=== PATIENT | male | born 1975 | race African-American/Black ===

== ENCOUNTER 2018-01-26 05:20 | Emergency (ER) | payer BC ==
[2018-01-26] MEDS ORDERED: Sodium Chloride 0.9% 1,000 ML IV ONE (06:00)
[2018-01-26] MEDS ORDERED: Diltiazem 25 MG/5 ML SDV IVPUSH ONE (06:57)
--- NOTE | 2018-01-26 06:57 | EDM.PDOC ---
<MccallOrion - Last Filed: 01/26/18 07:30> ED HPI GENERAL MEDICAL PROBLEM - General Chief Complaint: Respiratory Problem Stated Complaint: HARD TIME BREATHING Time Seen by Provider: 01/26/18 06:55 Source of Information: Reports: Patient History Limitations: Reports: No Limitations - History of Present Illness INITIAL COMMENTS - FREE TEXT/NARRATIVE: HISTORY AND PHYSICAL: History of present illness: 41-year-old male presenting emergency department with chief complaint of shortness of breath 30 minutes. Patient states that he went to work at around 0445 this morning and was there for about 15 minutes when he began to have sudden onset of shortness of breath. He also noticed that his heart was beating fast. He came to the emergency department immediately for further evaluation. He denies any history of cardiopulmonary disease and takes no regular medications. States that his never had anything like this happen before. Denies any associated chest pain, diaphoresis, or nausea and vomiting. Denies any history of asthma or COPD. Patient is not a frequent smoker and only drinks occasionally. He currently denies any chest pain, syncopal episodes, or focal neurologic episodes. On initial exam patient does seem mildly diaphoretic. He is breathing heavily and oxygenating 84% on room air. On palpation his heart rate is rapid but regular. Initial EKG shows sinus tachycardia with a rate of 126, regular narrow complex. Did have the patient perform Valsalva which did not alleviate his tachycardia. Review of systems: As per history of present illness and below otherwise all systems reviewed and negative. Past medical history: As per history of present illness and as reviewed below otherwise noncontributory. Surgical history: As per history of present illness and as reviewed below otherwise noncontributory. Social history: No reported history of drug or alcohol abuse. Family history: As per history of present illness and as reviewed below otherwise noncontributory. Physical exam: HEENT: Atraumatic, normocephalic, pupils reactive, negative for conjunctival pallor or scleral icterus, mucous membranes moist, throat clear, neck supple, nontender, trachea midline. Lungs: Clear to auscultation, breath sounds equal bilaterally, chest nontender. Heart: S1S2, regular tachycardic, negative for clicks, rubs, or JVD. Abdomen: Soft, nondistended, nontender. Negative for masses or hepatosplenomegaly. Negative for costovertebral tenderness. Pelvis: Stable nontender. Genitourinary: Deferred. Rectal: Deferred. Extremities: Atraumatic, negative for cords or calf pain. Neurovascular unremarkable. Neuro: Awake, alert, oriented. Cranial nerves II through XII unremarkable. Cerebellum unremarkable. Motor and sensory unremarkable throughout. Exam nonfocal. Diagnostics: CBC, CMP, troponin, INR, chest x-ray, EKG, CTA chest, UA/UC, urine drug screen Therapeutics: 1 L normal saline, Impression: Sinus tachycardia narrow complex Shortness of breath Plan: CBC, CMP, troponin, INR were all unremarkable. Urinalysis and urine drug screen were negative. D-dimer was mildly elevated so CTA of the chest was ordered. At [address] Valdez of the patient the patient history as well as physical exam and pertinent findings. He is going to take over care of the patient at 07. Definitive disposition and diagnosis as appropriate pending reevaluation and review of above. denies pain Pain Score (Numeric/FACES): 0 - Related Data Allergies Allergy/AdvReac Type Severity Reaction Status Date / Time No Known Allergies Allergy Verified 01/26/18 06:55 Home Meds: Home Meds . [No Known Home Meds] 01/26/18 [History] Course - Vital Signs Last Recorded V/S: Last Vital Signs Temp 98.7 F 01/26/18 06:55 Pulse 93 01/26/18 08:27 Resp 18 01/26/18 08:27 BP 142/97 H 01/26/18 08:27 Pulse Ox 96 01/26/18 08:27 - Orders/Labs/Meds Orders: Active Orders 24 hr Category Date Time Status EKG 12 Lead [EKG Documentation Completion] [RC] STAT Care 01/26/18 07:03 Active Ang Chest [CT] Stat Exams 01/26/18 07:13 Taken Chest 1V Frontal [CR] Stat Exams 01/26/18 06:05 Taken DRUG SCREEN, URINE [URCHEM] Stat Lab 01/26/18 06:05 Ordered Metoprolol Tartrate [Lopressor] Med 01/26/18 09:15 Active 5 mg IVPUSH Q5M Medication Orders Metoprolol Tartrate (Lopressor) 5 mg IVPUSH Q5M JAQUAN Stop: 01/26/18 09:26 Labs: Laboratory Tests 01/26/18 01/26/18 01/26/18 Range/Units 05:25 05:25 05:25 WBC 5.01 (4.0-11.0) K/uL RBC 5.40 (4.50-5.90) M/uL Hgb 13.8 (13.0-17.0) g/dL Hct 39.7 (38.0-50.0) % MCV 73.5 L (80.0-98.0) fL MCH 25.6 L (27.0-32.0) pg MCHC 34.8 (31.0-37.0) g/dL RDW Std Deviation 38.7 (28.0-62.0) fl RDW Coeff of Kt 15 (11.0-15.0) % Plt Count 230 (150-400) K/uL MPV 11.20 (7.40-12.00) fL Neut % (Auto) 21.3 L (48.0-80.0) % Lymph % (Auto) 69.1 H (16.0-40.0) % Storey % (Auto) 6.2 (0.0-15.0) % Eos % (Auto) 3.2 (0.0-7.0) % Baso % (Auto) 0.2 (0.0-1.5) % Neut # (Auto) 1.1 L (1.4-5.7) K/uL Lymph # (Auto) 3.5 H (0.6-2.4) K/uL Storey # (Auto) 0.3 (0.0-0.8) K/uL Eos # (Auto) 0.2 (0.0-0.7) K/uL Baso # (Auto) 0.0 (0.0-0.1) K/uL Nucleated RBC % 0.0 /100WBC Nucleated RBCs # 0 K/uL INR 0.94 APTT 25.2 (18.6-31.3) SEC D-Dimer, Quantitative 0.60 H (0.0-0.52) mg/LFEU Sodium 141 (136-148) mmol/L Potassium 3.8 (3.5-5.1) mmol/L Chloride 105 (98-107) mmol/L Carbon Dioxide 24.0 (21.0-32.0) mmol/L BUN 22 H (7.0-18.0) mg/dL Creatinine 1.0 (0.8-1.3) mg/dL Est Cr Clr Drug Dosing 101.39 mL/min Estimated GFR (MDRD) > 60.0 ml/min Glucose 117 H (74-106) mg/dL Calcium 8.7 (8.5-10.1) mg/dL Total Bilirubin 0.4 (0.2-1.0) mg/dL AST 32 (15-37) IU/L ALT 36 (14-63) IU/L Alkaline Phosphatase 109 (46-116) U/L Troponin I < 0.050 (0.000-0.056) ng/mL Total Protein 8.1 (6.4-8.2) g/dL Albumin 4.0 (3.4-5.0) g/dL Globulin 4.1 H (2.0-3.5) g/dL Albumin/Globulin Ratio 1.0 L (1.3-2.8) TSH 3rd Generation 2.28 (0.36-3.74) uIU/mL Urine Color Urine Appearance Urine pH (5.0-8.0) Ur Specific [place] (1.001-1.035) Urine Protein (NEGATIVE) mg/dL Urine Glucose (UA) (NEGATIVE) mg/dL Urine Ketones (NEGATIVE) mg/dL Urine Occult Blood (NEGATIVE) Urine Nitrite (NEGATIVE) Urine Bilirubin (NEGATIVE) Urine Urobilinogen (<2.0) EU/dL Ur Leukocyte Esterase (NEGATIVE) Urine RBC (0-2/HPF) Urine WBC (0-5/HPF) Ur Epithelial Cells (NONE-FEW) Urine Bacteria (NEGATIVE) Urine Opiates Screen (NEGATIVE) Ur Oxycodone Screen (NEGATIVE) Urine Methadone Screen (NEGATIVE) Ur Barbiturates Screen (NEGATIVE) Ur Phencyclidine Scrn (NEGATIVE) Ur Amphetamine Screen (NEGATIVE) U Methamphetamines Scrn (NEGATIVE) U Benzodiazepines Scrn (NEGATIVE) U Cocaine Metab Screen (NEGATIVE) U Marijuana (THC) Screen (NEGATIVE) 01/26/18 01/26/18 Range/Units 06:05 06:05 WBC (4.0-11.0) K/uL RBC (4.50-5.90) M/uL Hgb (13.0-17.0) g/dL Hct (38.0-50.0) % MCV (80.0-98.0) fL MCH (27.0-32.0) pg MCHC (31.0-37.0) g/dL RDW Std Deviation (28.0-62.0) fl RDW Coeff of Kt (11.0-15.0) % Plt Count (150-400) K/uL MPV (7.40-12.00) fL Neut % (Auto) (48.0-80.0) % Lymph % (Auto) (16.0-40.0) % Storey % (Auto) (0.0-15.0) % Eos % (Auto) (0.0-7.0) % Baso % (Auto) (0.0-1.5) % Neut # (Auto) (1.4-5.7) K/uL Lymph # (Auto) (0.6-2.4) K/uL Storey # (Auto) (0.0-0.8) K/uL Eos # (Auto) (0.0-0.7) K/uL Baso # (Auto) (0.0-0.1) K/uL Nucleated RBC % /100WBC Nucleated RBCs # K/uL INR APTT (18.6-31.3) SEC D-Dimer, Quantitative (0.0-0.52) mg/LFEU Sodium (136-148) mmol/L Potassium (3.5-5.1) mmol/L Chloride (98-107) mmol/L Carbon Dioxide (21.0-32.0) mmol/L BUN (7.0-18.0) mg/dL Creatinine (0.8-1.3) mg/dL Est Cr Clr Drug Dosing mL/min Estimated GFR (MDRD) ml/min Glucose (74-106) mg/dL Calcium (8.5-10.1) mg/dL Total Bilirubin (0.2-1.0) mg/dL AST (15-37) IU/L ALT (14-63) IU/L Alkaline Phosphatase (46-116) U/L Troponin I (0.000-0.056) ng/mL Total Protein (6.4-8.2) g/dL Albumin (3.4-5.0) g/dL Globulin (2.0-3.5) g/dL Albumin/Globulin Ratio (1.3-2.8) TSH 3rd Generation (0.36-3.74) uIU/mL Urine Color YELLOW Urine Appearance CLEAR Urine pH 6.0 (5.0-8.0) Ur Specific [place] 1.020 (1.001-1.035) Urine Protein NEGATIVE (NEGATIVE) mg/dL Urine Glucose (UA) NEGATIVE (NEGATIVE) mg/dL Urine Ketones NEGATIVE (NEGATIVE) mg/dL Urine Occult Blood SMALL H (NEGATIVE) Urine Nitrite NEGATIVE (NEGATIVE) Urine Bilirubin NEGATIVE (NEGATIVE) Urine Urobilinogen 0.2 (<2.0) EU/dL Ur Leukocyte Esterase NEGATIVE (NEGATIVE) Urine RBC 0-3 (0-2/HPF) Urine WBC 0-2 (0-5/HPF) Ur Epithelial Cells RARE (NONE-FEW) Urine Bacteria RARE (NEGATIVE) Urine Opiates Screen NEGATIVE (NEGATIVE) Ur Oxycodone Screen NEGATIVE (NEGATIVE) Urine Methadone Screen NEGATIVE (NEGATIVE) Ur Barbiturates Screen NEGATIVE (NEGATIVE) Ur Phencyclidine Scrn NEGATIVE (NEGATIVE) Ur Amphetamine Screen NEGATIVE (NEGATIVE) U Methamphetamines Scrn NEGATIVE (NEGATIVE) U Benzodiazepines Scrn NEGATIVE (NEGATIVE) U Cocaine Metab Screen NEGATIVE (NEGATIVE) U Marijuana (THC) Screen NEGATIVE (NEGATIVE) Meds: Medications Generic Name Dose Route Start Last Admin Trade Name Freq PRN Reason Stop Dose Admin Metoprolol Tartrate 5 mg 01/26/18 09:15 Lopressor IVPUSH 01/26/18 09:26 Q5M JAQUAN Discontinued Medications Generic Name Dose Route Start Last Admin Trade Name Freq PRN Reason Stop Dose Admin Diltiazem HCl 20 mg 01/26/18 06:57 01/26/18 07:10 Diltiazem IVPUSH 01/26/18 06:58 20 mg ONETIME ONE Administration Sodium Chloride 1,000 mls @ 999 mls/hr 01/26/18 06:00 01/26/18 06:00 Normal Saline IV 01/26/18 07:00 999 mls/hr .Bolus ONE Administration Iopamidol 100 ml 01/26/18 08:53 01/26/18 08:54 Isovue Multipack-370 (76%) IVPUSH 01/26/18 08:54 100 ml ONETIME STA Administration Departure - Departure Disposition: Home, Self-Care 01 Clinical Impression: Sinus tachycardia, Anxiety about health - Discharge Information Referrals: PCP,None [Primary Care Provider] - Forms: ED Department Discharge Additional Instructions: Medication as prescribed Return if symptoms persist or worsen Follow-up with primary care in 2 weeks sooner as needed The following information is given to patients seen in the emergency department who are being discharged to home. This information is to outline your options for follow-up care. We provide all patients seen in our emergency department with a follow-up referral. The need for follow-up, as well as the timing and circumstances, are variable depending upon the specifics of your emergency department visit. If you don't have a primary care physician on staff, we will provide you with a referral. We always advise you to contact your personal physician following an emergency department visit to inform them of the circumstance of the visit and for follow-up with them and/or the need for any referrals to a consulting specialist. The emergency department will also refer you to a specialist when appropriate. This referral assures that you have the opportunity for follow-up care with a specialist. All of these measure are taken in an effort to provide you with optimal care, which includes your follow-up. Under all circumstances we always encourage you to contact your private physician who remains a resource for coordinating your care. When calling for follow-up care, please make the office aware that this follow-up is from your recent emergency room visit. If for any reason you are refused follow-up, please contact the [facility] emergency department at and asked to speak to the emergency department charge nurse. - My Orders Last 24 Hours: My Active Orders 01/26/18 09:15 Metoprolol Tartrate [Lopressor] 5 mg IVPUSH Q5M - Assessment/Plan Last 24 Hours: My Active Orders 01/26/18 09:15 Metoprolol Tartrate [Lopressor] 5 mg IVPUSH Q5M <Duc Marino - Last Filed: 01/26/18 09:25> ED HPI GENERAL MEDICAL PROBLEM - History of Present Illness INITIAL COMMENTS - FREE TEXT/NARRATIVE: Patient is doing well post treatment above I received signout to follow-up CTA chest 2 views slightly elevated d-dimer and history of shortness of breath Patient is currently asymptomatic his blood pressure is elevated on a couple of occasions he is somewhat anxious at times but is in no acute distress has no fever nausea vomiting diarrhea constipation chest pain shortness breath headache dizziness or palpitation no bowel or urine symptoms at current He denies illicit drugs and as negative drug screen Gen. no acute distress HEENT grossly within normal limits Chest clear throughout CV regular rate and rhythm Abdomen benign Extremities full range of motion strength 5 out of 5 no edema [employer] alert nonfocal Lab and imaging as above Impression Sinus tachycardia resolved Shortness of breath resolved Therapeutics Patient will be provided propranolo to treat anxiety as well as elevated blood pressure intermittently recommend follow-up with primary care in 2 weeks for repeat lab and recheck Definitive disposition and diagnosis as appropriate pending reevaluation and review of above l ED ROS GENERAL - Review of Systems Review Of Systems: See Below ED EXAM, GENERAL - Physical Exam Exam: See Below Departure - Departure Time of Disposition: 09:24 Condition: Good
[2018-01-26 07:05] LABS: CHLORIDE,CL 105 mmol/L (98-107); SODIUM,NA 141 mmol/L (136-148)
[2018-01-26] MEDS ORDERED: Iopamidol 755 MG/ML 500 ML Multipack Bottle IVPUSH STA (08:53)
[2018-01-26] MEDS ORDERED: Metoprolol Tartrate 5 MG/5 ML SDV IVPUSH SCH (09:15)
--- NOTE | 2018-01-27 13:37 | CR ---
EXAM DATE: 01/26/18 PATIENT'S AGE: 42 Patient: CHAVA DOMINGO Facility: [place], [place] Site . Site : 1975 Study: XRay Chest -01/26/2018 6:14:45 AM Ordering Physician: DANNIE OGDEN MD Final Report: INDICATION: Shortness of breath TECHNIQUE: Chest radiograph 1 view COMPARISON: None FINDINGS: Cardiovascular and mediastinum: The heart silhouette is normal in size and morphology. The mediastinum is normal in appearance. Lungs and pleural spaces: Both lungs are unremarkable in appearance. No sign of pleural effusion seen. No pneumothorax is identified. Bones and soft tissues: No significant findings. IMPRESSION: 1. No acute cardiopulmonary disease is seen. Dictated by Antonio Gray MD @ 01/26/2018 6:24:59 AM Dictated by: Antonio Gray MD @ 01/26/2018 06:25:07 (Electronic Signature) Report Signed by Proxy. [facility] HOSPITALTeressa
--- NOTE | 2018-01-27 13:38 | CT ---
EXAM DATE: 01/26/18 PATIENT'S AGE: 42 Patient: CHAVA DOMINGO Facility: [place], [place] Site . Site : 1975 Study: CT Chest Angio [id number]/22/2018 8:30:15 AM Ordering Physician: Cal Sears Final Report: INDICATION: Shortness of breath. TECHNIQUE: CT pulmonary angiogram with 100 cc of Isovue-370 given intravenously. FINDINGS: No pulmonary emboli. No aneurysmal dilatation of the thoracic aorta. No mediastinal or hilar adenopathy. No axillary adenopathy. The lungs show no focal pulmonary opacities. No pneumothorax. No other bony or soft tissue abnormalities identified. IMPRESSION: No pulmonary emboli. No acute abnormalities of the chest identified. Dictated by Hebert Neves MD @ 01/26/2018 8:52:05 AM Dictated by: Hebert Neves MD @ 01/26/2018 08:52:13 (Electronic Signature) Report Signed by Proxy. [facility]ITALTeressa
== END 2018-01-26 09:48 | disposition home or self-care (01) ==
LOC: MW.ED 05:20
DX: R00.0 Tachycardia, unspecified (principal); F41.9 Anxiety disorder, unspecified
CPT/HCPCS: 36415; 71045; 71275; 80053; 80305; 81001; 84443; 84484; 85025; 85379; 85610; 85730; 93005; 96361; 96374; 99285; J3490; J7040; Q9967; 99284